=== PATIENT | male | born 1940 | race Caucasian/White ===

== ENCOUNTER 2021-10-05 16:52 | Emergency (ER) | payer BC, MEDICARE ==
[~2021-10-05] VITALS: Ht 167.6 cm; Wt 74.8 kg
[~2021-10-05 16:52] MED LIST: ATOR20TA PO; DULO60CA45 PO
[2021-10-05 17:08] VITALS: BP 108/81
[2021-10-05] MEDS ORDERED: [UNRECOGNIZED DRUG - CODE] TP (17:27)
--- NOTE | 2021-10-05 19:39 | NUR ---
PATIENT LEFT WITHOUT RECEIVING D/C PAPERS.
== END 2021-10-05 21:49 | disposition home or self-care (01) ==
LOC: ER 17:01
DX: H10.212 Acute toxic conjunctivitis, left eye (principal); Z79.899 Other long term (current) drug therapy